=== PATIENT | female | born 1965 | race Caucasian/White ===

== ENCOUNTER 2017-10-25 20:13 | Emergency (ER) | payer SELFPAY ==
[~2017-10-25] VITALS: Wt 72.6 kg
--- NOTE | ~2017-10-25 | EKG ---
[place], [place] ELECTROCARDIOGRAM REPORT NAME: MADYSON WHITE UNIT #: [id number] ROOM: DOCTOR: EPIPHANY DRAFT REPORT BIRTHDATE: [birth year] [facility] Test Date: 2017-10-25 Test Time: 20:16:21 Pat Name: MADYSON WHITE Department: Room: Gender: F Service Associate: Lexie Greene : 1965 Requested By: EMELIA CARR Order Number: [id number] Reading MD: Hari Larios MD Measurements Intervals [place] Rate: 84 P: 44 ND: 109 QRS: 56 QRSD: 98 T: 22 QT: 349 QTc: 413 Interpretive Statements Sinus rhythm Short ND interval Electronically Signed On 10-27-2017 11:03:08 PDT by Hari Larios MD CM:EKGRPT:ELECTROCARDIOGRAM REPORT 15 1103 EMELIA CARR EPIPHBALAJI DRAFT REPORT EMELIA CARR
[~2017-10-25 20:13] MED LIST: BENADRYL50 MG PO; EPI-PEN1 MG/ML MR
[2017-10-25 20:37] LABS: BASO % 0.2 % (0.0-1.0); EOS # 0.1 10*3/uL (0.0-0.4); EOS % 1.3 % (1.0-4.0); HEMATOCRIT 47.9 % (37.0-47.0); HEMOGLOBIN 16.1 g/dl (12.0-16.0); LYMPH # 3.8 10*3/uL (1.3-4.4); LYMPH % 44.9 % (27.0-41.0); MEAN CELL VOLUME 88.4 fl (81.0-99.0); MEAN CORPUSCULAR HGB 29.7 pg (27.0-31.0); MEAN CORPUSCULAR HGB CONC 33.6 g/dl (33.0-37.0); MEAN PLATELET VOLUME 10.1 fl (9.6-12.3); MONO # 0.4 10*3/uL (0.1-1.0); NEUT # 4.1 10*3/uL (2.3-7.9); NEUT % 48.5 % (47.0-73.0); PLATELET COUNT AUTOMATED 301 10*3/uL (130-400); RED BLOOD COUNT 5.42 10*6/uL (4.10-5.10); RED CELL DISTRI WIDTH 12.1 % (0-14.5); WHITE BLOOD COUNT 8.5 10*3/uL (4.8-10.8)
[2017-10-25 20:55] LABS: ALBUMIN 4.3 gm/dl (3.1-4.5); ALKALINE PHOSPHATASE 87 U/L (45-117); BUN 13 mg/dl (7-24); CHLORIDE 104 mmol/L (98-107); CREATININE 0.94 mg/dL (0.55-1.02); POTASSIUM 3.6 mmol/L (3.5-5.1); SGOT/AST 15 IU/L (3-35); SGPT/ALT 30 U/L (12-78); SODIUM 138 mmol/L (136-145); TOTAL PROTEIN 7.8 gm/dL (6.4-8.2)
[2017-10-25 21:00] VITALS: BP 128/84
[2017-10-25] MEDS ORDERED: MEDROL DOSEPAK4 MG PO (21:05)
[2017-10-25] MEDS ORDERED: EPIPEN 2-P0.3 MG/0.3 IJ (21:05)
[2017-10-25] MEDS ORDERED: ZYRTEC10 MG PO (21:05)
== END 2017-10-25 21:07 | disposition home or self-care (01) ==
LOC: ED 20:13
PROVIDERS: Student in an Organized Health Care Education/Training Program
DX: T63.441A Toxic effect of venom of bees, accidental (unintentional), initial encounter (principal); R06.02 Shortness of breath; Y92.89 Other specified places as the place of occurrence of the external cause

== ENCOUNTER 2021-03-25 13:43 | Emergency (ER) | payer BC ==
[~2021-03-25] VITALS: Wt 69.4 kg
[~2021-03-25 13:43] MED LIST changes: +EPIPEN 2-P0.3 MG/0.3 IJ; +MEDROL DOSEPAK4 MG PO; +ZYRTEC10 MG PO
[2021-03-25 14:05] LABS: BASO % 0.6 % (0.0-1.0); EOS # 0.3 10*3/uL (0.0-0.4); EOS % 3.7 % (1.0-4.0); HEMATOCRIT 45.9 % (37.0-47.0); LYMPH # 2.5 10*3/uL (1.3-4.4); LYMPH % 34.3 % (27.0-41.0); MEAN CELL VOLUME 88.6 fl (81.0-99.0); MEAN CORPUSCULAR HGB 29.2 pg (27.0-31.0); MEAN CORPUSCULAR HGB CONC 32.9 g/dl (33.0-37.0); MEAN PLATELET VOLUME 10.3 fl (9.6-12.3); MONO # 0.3 10*3/uL (0.1-1.0); MONO % 4.6 % (3.0-9.0); NEUT # 4.1 10*3/uL (2.3-7.9); NEUT % 56.5 % (47.0-73.0); PLATELET COUNT AUTOMATED 291 10*3/uL (130-400); RED BLOOD COUNT 5.18 10*6/uL (4.10-5.10); RED CELL DISTRI WIDTH 12.3 % (0-14.5); WHITE BLOOD COUNT 7.2 10*3/uL (4.8-10.8)
[2021-03-25 14:18] LABS: ACT PARTIAL THROMBO TIME 25.4 SECONDS (20.0-32.1); INTERNATIONAL NORM RATIO 0.9 (2.0-3.5)
[2021-03-25 14:24] LABS: ALKALINE PHOSPHATASE 79 U/L (45-117); BUN 14 mg/dl (7-24); CHLORIDE 106 mmol/L (98-107); CREATININE 0.75 mg/dL (0.55-1.02); POTASSIUM 3.8 mmol/L (3.5-5.1); SGOT/AST 9 IU/L (3-35); SGPT/ALT 17 U/L (12-78); SODIUM 139 mmol/L (136-145); TOTAL PROTEIN 7.5 gm/dL (6.4-8.2)
[2021-03-25 16:36] VITALS: BP 98/67
[2021-03-25] MEDS ORDERED: PHENERGAN25 M3 PO (16:40)
== END 2021-03-25 16:47 | disposition home or self-care (01) ==
LOC: ED 13:43
PROVIDERS: Emergency Medicine
DX: R11.0 Nausea (principal); Z20.822 Contact with and (suspected) exposure to COVID-19; R07.9 Chest pain, unspecified; Z98.890 Other specified postprocedural states; Z90.710 Acquired absence of both cervix and uterus